=== PATIENT | male | born 1985 | race Caucasian/White ===

== ENCOUNTER 2017-05-25 14:04 | Emergency (ER) | payer MEDICAID ==
--- NOTE | 2017-05-27 11:17 | ER ---
DATE SEEN: 05/25/2017 TIME SEEN: The patient was seen at 1415 hours. HISTORY OF PRESENT ILLNESS: Jacobo is a 31-year-old who complains of tooth pain. His wisdom teeth have been extracted, but tooth #30 has been a problem for him. He has not taken care of his teeth for 6 months. Today, he has increasing pain. He notes he is somewhat depressed. He has been not employed. He has no history of chemical dependency. He was fired from his job over anger issues. He needs a job. He is not working. He has felt that he is depressed because he quit working. He feels anxiety and takes Trintellix, (I am not sure about this medicine). He has had palpitations occasionally. The last time he worked was in December 2016. He wants to go and live with his girlfriend, who is in [place] and her name is Gina, but he does not have the money to get there. The patient is a nonsmoker. He has been sleeping more than usual over last week. SIGECAPS: S: He is sad. I: Loss of interest-feels helpless and hopeless. G: Guilty. He feels guilty because he is not working, then refused a job application, he cannot get a job. He is on food stamps, currently is getting by but was marginal. E: Decreased energy. C: Concentration is poor. S: He is sad. He is not suicidal. He does not have delusions or hallucinations nor does he plan to kill himself. He is not impulsive. PHYSICAL EXAMINATION: VITAL SIGNS: Blood pressure 124/88, heart rate 72, respirations 18, oxygen saturation 100%, and temperature is 36.4 degrees. Weight is 68.03 kg. BMI of 25.7 kg/m2. GENERAL: The patient is somewhat distant. He is depressed. He is unshaven. He is not disheveled. He is not well dressed. No odor noted. He has showered and caring for himself. HEENT: PERRLA intact. Pharynx without abnormality. No dryness of the throat. TMs normal appearance. Hearing is good. NECK: No cervical adenopathy. No erythema. No thyromegaly. LUNGS: Clear without rales, rhonchi, or wheezes. HEART: S1, S2. No murmur. Regular rate and rhythm. ABDOMEN: No discomfort. No guarding or rebound. Bowel sounds normal. EXTREMITIES: Without abnormality. NEURO: Deep tendon reflex in upper and lower extremities symmetrical, 1+, and normoactive. Cranial nerves 2 through 12 intact. Gait intact. Orientation intact. No pronator drift. Examination of the mouth: Tooth #30 20% of the buccal crown is absent fractured off. Dark brown pulp noted. (Reflecting the chronic of his dental problem lack of personal dental hygiene. ASSESSMENT: Dental pain with periapical abscess. PLAN: Treat with hydrocodone 8 tablets. Also treat with Amoxil 875 mg b.i.d., 20 tablets. Follow up with dentist and have it taken care of. He was given 2 telephone numbers for the [facility] in [place]. He can have this managed. He needs to enlist a support team for his social needs and continue to go to the [employer] in the [place] he [place] in. /[id number] RHONDA/VALDEZ HCAN
== END 2017-05-25 15:32 | disposition home or self-care (01) ==
LOC: FB.ED 14:04
DX: K04.7 Periapical abscess without sinus (principal)
CPT/HCPCS: 99282; 99283